=== PATIENT | female | born 1985 ===

== ENCOUNTER → 2017-09-24 | Outpatient (REF) | payer OTHER ==
[2017-09-24 14:17] LABS: TOTAL PROTEIN,RANDOM URINE 44.9 MG/DL (0.0-12.0)
== END ==
LOC: M LAB REF 13:11
DX: I10 Essential (primary) hypertension (principal); R80.9 Proteinuria, unspecified
CPT/HCPCS: 84156

== ENCOUNTER → 2018-02-24 | Outpatient (REF) | payer OTHER ==
[2018-02-24 17:30] LABS: TOTAL PROTEIN,RANDOM URINE 13.6 MG/DL (0.0-12.0)
== END ==
LOC: M LAB REF 17:05
DX: R80.9 Proteinuria, unspecified (principal); I10 Essential (primary) hypertension

== ENCOUNTER → 2018-10-24 | Outpatient (REF) | payer OTHER | LOC: M LAB REF 13:02 | PROVIDERS: ATTEND Internal Medicine Nephrology | DX: I15.9 Secondary hypertension, unspecified (principal); R80.9 Proteinuria, unspecified ==

== ENCOUNTER → 2018-11-05 | Outpatient (CLI) | payer OTHER | LOC: M LRY 11:30 | PROVIDERS: ATTEND Internal Medicine Nephrology | DX: I15.9 Secondary hypertension, unspecified (principal) ==